=== PATIENT | female | born 1935 | race Caucasian/White ===

== ENCOUNTER 2017-04-25 18:19 | Inpatient (IN) | payer MEDICARE, MEDICAID ==
[2017-04-25] MEDS ORDERED: Sodium Chloride 0.9% 10 ML Syringe FLUSH PRN (18:55)
[2017-04-25] MEDS ORDERED: Albuterol/Ipratropium 3.0-0.5 MG/3 ML Neb Soln NEB ONE (18:57)
[2017-04-25] MEDS ORDERED: cefTRIAXone 2 GM in Sodium Chloride 0.9% 100 ML IV ONE (18:57)
--- NOTE | 2017-04-25 19:04 | EDM.PDOC ---
ED HPI GENERAL MEDICAL PROBLEM - General Chief Complaint: Respiratory Problem Stated Complaint: COUGHING AND MAYBE FLU Time Seen by Provider: 04/25/17 18:47 Source of Information: Reports: Patient, Family History Limitations: Reports: No Limitations - History of Present Illness INITIAL COMMENTS - FREE TEXT/NARRATIVE: The patient presents with a cough, fever and chills. This all started last Sunday. She also has some shortness of breath. She has chest pain when she coughs. She is diaphoretic at times. She has a hoarse voice. She has no appetite. She has no abdominal pain, nausea or vomiting. She does not smoke and she has no lung problems such as asthma or COPD. Onset: Gradual Duration: Day(s): (5) Location: Reports: Chest Quality: Reports: Ache Severity: Mild Improves with: Reports: None Worsens with: Reports: Other (coughing) Associated Symptoms: Reports: Chest Pain, Cough, cough w sputum, Fever/Chills, Shortness of Breath. Denies: Headaches, Nausea/Vomiting Lower Back Pain Score (Numeric/FACES): 8 - Related Data Allergies Allergy/AdvReac Type Severity Reaction Status Date / Time No Known Allergies Allergy Verified 04/25/17 18:34 Home Meds: Home Meds Multivitamin [Multi Vitamin Daily] 1 tab PO DAILY 02/28/14 [History] Omeprazole 1 cap PO DAILY 02/28/14 [History] Simvastatin [Zocor] 1 tab PO BEDTIME 02/28/14 [History] Ascorbic Acid [Vitamin C] 1 tab PO DAILY 04/06/14 [History] Calcium Citrate/Vitamin D3 [Sm Calcium Citrate-Vit D Cplt] 1 tab PO TID [History] Cholecalciferol (Vitamin D3) [Vitamin D3] 1 tab PO DAILY 04/06/14 [History] Denosumab [Prolia] 1 dose SQ ASDIRECTED 04/06/14 [History] Glucosamine Sulfate 1 tab PO DAILY 04/06/14 [History] Ibuprofen [Advil] 3 tab PO Q8H PRN 04/06/14 [History] Magnesium Oxide 1 tab PO DAILY 04/06/14 [History] [place]-3 Fatty Acids [Homestead-3] 1 cap PO DAILY 04/06/14 [History] Ondansetron [Zofran ODT] 2 tab PO Q8H PRN 04/06/14 [History] Ubidecarenone [Co Q-10] 1 cap PO DAILY 04/06/14 [History] Vitamin B Complex 1 cap PO DAILY 04/06/14 [History] cycloSPORINE [Restasis] 1 dose EYEBOTH ASDIRECTED PRN 04/06/14 [History] Past Medical History 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 Gastrointestinal History: Reports: Irritable Bowel Syndrome Musculoskeletal History: Reports: Osteoarthritis Neurological History: Reports: Other (See Below) 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 Social & Family History - Tobacco Use Smoking Status *Q: Former Smoker Used Tobacco, but Quit: No Month Tobacco Last Used: 1974 Second Hand Smoke Exposure: No - Alcohol Use Days Per Week of Alcohol Use: 0 Number of Drinks Per Day: 0 Total Drinks Per Week: 0 - Recreational Drug Use Recreational Drug Use: No Drug Use in Last 12 Months: No ED ROS GENERAL - Review of Systems Review Of Systems: See Below Constitutional: Reports: Fever, Chills, Malaise, Weakness, Fatigue HEENT: Reports: Other (Hoarse voice) Respiratory: Reports: Shortness of Breath, Cough, Sputum Cardiovascular: Reports: Chest Pain Endocrine: Reports: No Symptoms GI/Abdominal: Reports: Anorexia. Denies: Abdominal Pain, Diarrhea, Nausea, Vomiting : Reports: No Symptoms Musculoskeletal: Reports: No Symptoms Skin: Reports: No Symptoms Neurological: Reports: No Symptoms ED EXAM, GENERAL - Physical Exam Exam: See Below Exam Limited By: No Limitations General Appearance: Alert, WD/WN, No Apparent Distress Ears: Normal External Exam Nose: Normal Inspection Throat/Mouth: Normal Inspection Head: Atraumatic, Normocephalic Neck: Normal Inspection Respiratory/Chest: No Respiratory Distress, Rhonchi Cardiovascular: Regular Rate, Rhythm, No Edema, No Murmur GI/Abdominal: Soft, Non-Tender, No Organomegaly, No Mass Back Exam: Normal Inspection Extremities: Normal Inspection Course - Vital Signs Last Recorded V/S: Last Vital Signs Temp 97.8 F 04/25/17 18:34 Pulse 103 H 04/25/17 18:34 Resp 24 H 04/25/17 18:34 BP 98/62 04/25/17 18:34 Pulse Ox 93 L 04/25/17 19:08 - Orders/Labs/Meds Orders: Active Orders 24 hr Category Date Time Status Cardiac Monitoring [RC] . DIRECTED Care 04/25/17 18:55 Active Peripheral IV Care [RC] . DIRECTED Care 04/25/17 18:56 Active RT Aerosol Therapy [RC] ASDIRECTED Care 04/25/17 18:57 Active Chest 1V Frontal [CR] Stat Exams 04/25/17 18:56 Taken CULTURE BLOOD [BC] Stat Lab 04/25/17 19:25 Received CULTURE BLOOD [BC] Stat Lab 04/25/17 19:35 Received Sodium Chloride 0.9% [Normal Saline] 1,000 ml Med 04/25/17 19:00 Active IV ASDIRECTED Sodium Chloride 0.9% [Saline Flush] Med 04/25/17 18:55 Active 10 ml FLUSH ASDIRECTED PRN Blood Culture x2 Reflex Set [OM.PC] Stat Oth 04/25/17 18:56 Ordered Peripheral IV Insertion Adult [OM.PC] Stat Oth 04/25/17 18:55 Ordered Medication Orders Sodium Chloride (Normal Saline) 1,000 mls @ 125 mls/hr IV ASDIRECTED ANDREA Last Admin: 04/25/17 19:36 Dose: 125 mls/hr Sodium Chloride (Saline Flush) 10 ml FLUSH ASDIRECTED PRN PRN Reason: Keep Vein Open Last Admin: 04/25/17 19:38 Dose: 10 ml Labs: Laboratory Tests 04/25/17 04/25/17 04/25/17 Range/Units 18:40 18:40 19:25 WBC 7.39 (3.98-10.04) K/mm3 RBC 4.70 (3.98-5.22) M/mm3 Hgb 14.8 (11.2-15.7) gm/L Hct 42.7 (34.1-44.9) % MCV 90.9 (79.4-94.8) fl MCH 31.5 (25.6-32.2) pg MCHC 34.7 (32.2-35.5) g/dl RDW Std Deviation 42.6 (36.4-46.3) fL Plt Count 193 (182-369) K/mm3 MPV 10.6 (9.4-12.3) fl Neut % (Auto) 48.5 (34.0-71.1) % Lymph % (Auto) 37.2 (19.3-51.7) % Gulf % (Auto) 13.3 H (4.7-12.5) % Eos % (Auto) 0.4 L (0.7-5.8) Baso % (Auto) 0.3 (0.1-1.2) % Neut # (Auto) 3.59 (1.56-6.13) K/mm3 Lymph # (Auto) 2.75 (1.18-3.74) K/mm3 Gulf # (Auto) 0.98 H (0.24-0.36) K/mm3 Eos # (Auto) 0.03 L (0.04-0.36) K/mm3 Baso # (Auto) 0.02 (0.01-0.08) K/mm3 Sodium 137 (136-145) mEq/L Potassium 3.3 L (3.5-5.1) mEq/L Chloride 100 (98-107) mEq/L Carbon Dioxide 25 (21-32) mEq/L Anion Gap 15.3 H (5-15) BUN 20 H (7-18) mg/dL Creatinine 1.0 (0.55-1.02) mg/dL Est Cr Clr Drug Dosing 34.30 mL/min Estimated GFR (MDRD) 53 (>60) mL/min BUN/Creatinine Ratio 20.0 H (14-18) Glucose 118 H (83-115) mg/dL Lactic Acid 1.8 (0.4-2.0) mmol/L Calcium 9.9 (8.5-10.1) mg/dL Total Bilirubin 1.1 H (0.2-1.0) mg/dL AST 42 H (15-37) U/L ALT 38 (14-59) U/L Alkaline Phosphatase 56 (46-116) U/L C-Reactive Protein 5.6 H* (<1.0) mg/dL Total Protein 6.7 (6.4-8.2) g/dl Albumin 3.0 L (3.4-5.0) g/dl Globulin 3.7 gm/dL Albumin/Globulin Ratio 0.8 L (1-2) Meds: Medications Generic Name Dose Route Start Last Admin Trade Name Freq PRN Reason Stop Dose Admin Sodium Chloride 1,000 mls @ 125 mls/hr 04/25/17 19:00 04/25/17 19:36 Normal Saline IV 125 mls/hr ASDIRECTED ANDREA Administration Sodium Chloride 10 ml 04/25/17 18:55 04/25/17 19:38 Saline Flush FLUSH 10 ml ASDIRECTED PRN Administration Keep Vein Open Discontinued Medications Generic Name Dose Route Start Last Admin Trade Name Freq PRN Reason Stop Dose Admin Albuterol/Ipratropium 3 ml 04/25/17 18:57 04/25/17 19:08 Duoneb 3.0-0.5 Mg/3 Ml NEB 04/25/17 18:58 3 ml ONETIME ONE Administration Ceftriaxone Sodium 2 gm/ 100 mls @ 100 mls/hr 04/25/17 18:57 04/25/17 19:37 Sodium Chloride IV 04/25/17 19:56 100 mls/hr ONETIME ONE Administration Oseltamivir Phosphate 75 mg 04/25/17 20:14 Tamiflu PO 04/25/17 20:15 ONETIME ONE - Re-Assessments/Exams Free Text/Narrative Re-Assessment/Exam: 04/25/17 19:03 I ordered an IV NS at 125mL/hr, labs, CXR, duoneb, blood cultures and rocephin 2 grams IV. 04/25/17 20:32 Her CXR shows a small infiltrate in the right middle lobe. Her WBC is normal. Her K was a little low at 3.3. Her anion gap is slightly elevated at 15.3. Her creatinine is normal at 1. Her AST was slightly elevated at 42. Her CRP was elevated at 5.6. Her lactic acid is normal. She is positive for influenza A. I ordered some tamiflu. I feel she needs to be admitted. I called Dr Wren and she agreed to the admission. Departure - Departure Time of Disposition: 20:35 Disposition: Admitted As Inpatient 66 Condition: Fair Clinical Impression: Influenza B Pneumonia Qualifiers: Pneumonia type: due to unspecified organism Laterality: right Lung location: middle lobe of lung Qualified Code(s): J18.1 - Lobar pneumonia, unspecified organism - Discharge Information Referrals: Caridad Villa, [employer] [Primary Care Provider] - Forms: ED Department Discharge - My Orders Last 24 Hours: My Active Orders 04/25/17 18:55 Cardiac Monitoring [RC] . DIRECTED Sodium Chloride 0.9% [Saline Flush] 10 ml FLUSH ASDIRECTED PRN Peripheral IV Insertion Adult [OM.PC] Stat 04/25/17 18:56 Peripheral IV Care [RC] . DIRECTED Chest 1V Frontal [CR] Stat Blood Culture x2 Reflex Set [OM.PC] Stat 04/25/17 18:57 RT Aerosol Therapy [RC] ASDIRECTED 04/25/17 19:00 Sodium Chloride 0.9% [Normal Saline] 1,000 ml IV ASDIRECTED 04/25/17 19:25 CULTURE BLOOD [BC] Stat 04/25/17 19:35 CULTURE BLOOD [BC] Stat - Assessment/Plan Last 24 Hours: My Active Orders 04/25/17 18:55 Cardiac Monitoring [RC] . DIRECTED Sodium Chloride 0.9% [Saline Flush] 10 ml FLUSH ASDIRECTED PRN Peripheral IV Insertion Adult [OM.PC] Stat 04/25/17 18:56 Peripheral IV Care [RC] . DIRECTED Chest 1V Frontal [CR] Stat Blood Culture x2 Reflex Set [OM.PC] Stat 04/25/17 18:57 RT Aerosol Therapy [RC] ASDIRECTED 04/25/17 19:00 Sodium Chloride 0.9% [Normal Saline] 1,000 ml IV ASDIRECTED 04/25/17 19:25 CULTURE BLOOD [BC] Stat 04/25/17 19:35 CULTURE BLOOD [BC] Stat
[2017-04-25] MEDS: Sodium Chloride 0.9% 1,000 ML IV SCH (19:36)
[2017-04-25] MEDS ORDERED: Oseltamivir 75 MG Cap PO ONE (20:14)
[2017-04-25] MEDS ORDERED: CYCLOSPORINE 0.05% EYEBOTH PRN (21:42)
[2017-04-25] MEDS ORDERED: OPTH EMULSION EYEBOTH PRN (21:42)
[2017-04-25] MEDS ORDERED: Levofloxacin/Dextrose 5%-Water 750 MG in Premix Bag 1 BAG IV SCH ×2 (21:45→22:00)
[2017-04-25] MEDS ORDERED: Albuterol/Ipratropium 3.0-0.5 MG/3 ML Neb Soln NEB PRN (21:52)
[2017-04-25] MEDS ORDERED: Temazepam 7.5 MG Cap PO PRN (21:56)
--- NOTE | 2017-04-25 21:56 | PCM.HP ---
H&P History of Present Illness - General Date of Service: 04/25/17 Admit Problem/Dx: Admission Diagnosis/Problem Admission Diagnosis/Problem Influenza with pneumonia Source of Information: Patient, Provider History Limitations: Reports: No Limitations - History of Present Illness Initial Comments - Free Text/Narative: 82 year old female with malaise, generalized weakness presents to the ED and was diagnosed with Influenza B. She had chosen not to get the Flu vaccine. She has had a dry cough with a hoarse voice. Denies fever or chills but has felt diaphoretic. She denies a headache, confusion but has had a diminished appetite. Symptom Onset Date: 04/20/17 Duration of Symptoms: Reports: Day(s):, Getting Worse Location: Reports: Chest, Generalized Severity: Moderate Improves with: Reports: Medication Worsens with: Reports: None Context: Reports: Sick Contact Associated Symptoms: Reports: Cough, Loss of Appetite, Malaise, Nausea/Vomiting , Shortness of Breath, Weakness Lower Back Pain Score (Numeric/FACES): 8 - Related Data Allergies/Adverse Reactions: Allergies Allergy/AdvReac Type Severity Reaction Status Date / Time No Known Allergies Allergy Verified 04/25/17 18:34 Home Medications: Home Meds Multivitamin [Multi Vitamin Daily] 1 tab PO DAILY 02/28/14 [History] Omeprazole 1 cap PO DAILY 02/28/14 [History] Simvastatin [Zocor] 1 tab PO BEDTIME 02/28/14 [History] Ascorbic Acid [Vitamin C] 1 tab PO DAILY 04/06/14 [History] Calcium Citrate/Vitamin D3 [Sm Calcium Citrate-Vit D Cplt] 1 tab PO TID [History] Cholecalciferol (Vitamin D3) [Vitamin D3] 1 tab PO DAILY 04/06/14 [History] Denosumab [Prolia] 1 dose SQ ASDIRECTED 04/06/14 [History] Glucosamine Sulfate 1 tab PO DAILY 04/06/14 [History] Ibuprofen [Advil] 3 tab PO Q8H PRN 04/06/14 [History] Rio-3 Fatty Acids [Rio-3] 1 cap PO DAILY 04/06/14 [History] Ubidecarenone [Co Q-10] 1 cap PO DAILY 04/06/14 [History] cycloSPORINE [Restasis] 1 dose EYEBOTH ASDIRECTED PRN 04/06/14 [History] L.acidoph,Paracasei, B.lactis [Probiotic] 1 each PO DAILY 04/26/17 [History] Polyethylene Glycol 3350 [MiraLAX] 17 gm PO DAILY 04/26/17 [History] Past Medical History 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 Gastrointestinal History: Reports: Irritable Bowel Syndrome Musculoskeletal History: Reports: Osteoarthritis Neurological History: Reports: Other (See Below) 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 Social & Family History - Tobacco Use Smoking Status *Q: Former Smoker Used Tobacco, but Quit: No Month Tobacco Last Used: 1974 Second Hand Smoke Exposure: No - Alcohol Use Days Per Week of Alcohol Use: 0 Number of Drinks Per Day: 0 Total Drinks Per Week: 0 - Recreational Drug Use Recreational Drug Use: No Drug Use in Last 12 Months: No H&P Review of Systems - Review of Systems: Review Of Systems: See Below General: Reports: No Symptoms, Malaise, Weakness, Fatigue HEENT: Reports: No Symptoms Pulmonary: Reports: Shortness of Breath, Pleuritic Chest Pain Cardiovascular: Reports: No Symptoms Gastrointestinal: Reports: No Symptoms Genitourinary: Reports: No Symptoms Musculoskeletal: Reports: No Symptoms Skin: Reports: No Symptoms Psychiatric: Reports: No Symptoms Neurological: Reports: No Symptoms Hematologic/Lymphatic: Reports: No Symptoms Immunologic: Reports: No Symptoms Exam - Exam Exam: See Below - Vital Signs Vital Signs: Last Vital Signs Temp 36.6 C 04/25/17 18:34 Pulse 103 H 04/25/17 18:34 Resp 24 H 04/25/17 18:34 BP 98/62 04/25/17 18:34 Pulse Ox 93 L 04/25/17 19:08 Weight: 58.967 kg - Exam Quality Assessment: Supplemental Oxygen, DVT Prophylaxis General: Alert, Oriented, Cooperative HEENT: Conjunctiva Clear, Nares Patent, Normal Nasal Septum, Pupils Equal, Pupils Reactive, PERRLA Neck: Trachea Midline Lungs: Normal Respiratory Effort, Decreased Breath Sounds, Rhonchi Cardiovascular: Regular Rate, Regular Rhythm GI/Abdominal Exam: Normal Bowel Sounds, Soft, Non-Tender, No Organomegaly, No Distention (Female) Exam: Deferred Rectal (Female) Exam: Deferred Back Exam: Normal Inspection Extremities: Normal Inspection, Non-Tender, Slow Capillary Refill Skin: Warm Neurological: Cranial Nerves Intact, Normal Speech Neuro Extensive - Mental Status: Alert, Oriented x3 Neuro Extensive - Motor, Sensory, Reflexes: CN II-XII Intact Psychiatric: Alert, Normal Affect, Normal Mood - Patient Data Result Diagrams: 04/26/17 06:17 04/26/17 06:17 *Q Meaningful Use (ADM) - VTE *Q VTE Criteria *Q: - Stroke *Q Stroke Criteria *Q: - AMI *Q AMI Criteria *Q: - Problem List (1) Influenza B SNOMED Code(s): 87713752 ICD Code: J10.1 - FLU DUE TO OTH IDENT INFLUENZA VIRUS W OTH RESP MANIFEST Status: Acute Current Visit: Yes Problem List Initiated/Reviewed/Updated: Yes Orders Last 24hrs: Active Orders 24 hr Category Date Time Status RT Aerosol Therapy [RC] ASDIRECTED Care 04/25/17 21:53 Active Consult to Occupational Therapy [OT Evaluation and Cons 04/25/17 21:52 Active Treatment] [CONS] Routine Consult to Physical Therapy [PT Evaluation and Cons 04/25/17 21:51 Active Treatment] [CONS] Routine Full Liquid Diet [DIET] Diet 04/26/17 Breakfast Active CXR [Chest 2V] [CR] Routine Exams 04/27/17 08:30 Ordered BMP [BASIC METABOLIC PANEL,BMP] [CHEM] DAILY Lab 04/26/17 05:00 Ordered BMP [BASIC METABOLIC PANEL,BMP] [CHEM] DAILY Lab 04/27/17 05:00 Ordered BMP [BASIC METABOLIC PANEL,BMP] [CHEM] DAILY Lab 04/28/17 05:00 Ordered BMP [BASIC METABOLIC PANEL,BMP] [CHEM] DAILY Lab 04/29/17 05:00 Ordered CBC WITH AUTO DIFF [HEME] DAILY Lab 04/26/17 05:00 Ordered CBC WITH AUTO DIFF [HEME] DAILY Lab 04/27/17 05:00 Ordered CBC WITH AUTO DIFF [HEME] DAILY Lab 04/28/17 05:00 Ordered CBC WITH AUTO DIFF [HEME] DAILY Lab 04/29/17 05:00 Ordered CRP [C-REACTIVE PROTEIN] [CHEM] DAILY Lab 04/26/17 05:00 Ordered CRP [C-REACTIVE PROTEIN] [CHEM] DAILY Lab 04/27/17 05:00 Ordered CRP [C-REACTIVE PROTEIN] [CHEM] DAILY Lab 04/28/17 05:00 Ordered CRP [C-REACTIVE PROTEIN] [CHEM] DAILY Lab 04/29/17 05:00 Ordered LACTIC ACID [CHEM] DAILY Lab 04/26/17 05:00 Ordered LACTIC ACID [CHEM] DAILY Lab 04/27/17 05:00 Ordered LACTIC ACID [CHEM] DAILY Lab 04/28/17 05:00 Ordered LACTIC ACID [CHEM] DAILY Lab 04/29/17 05:00 Ordered MAGNESIUM [CHEM] DAILY Lab 04/26/17 05:00 Ordered MAGNESIUM [CHEM] DAILY Lab 04/27/17 05:00 Ordered MAGNESIUM [CHEM] DAILY Lab 04/28/17 05:00 Ordered MAGNESIUM [CHEM] DAILY Lab 04/29/17 05:00 Ordered MYCOPLASMA PNEUMONIAE IGM AB [CHEM] Routine Lab 04/26/17 05:00 Ordered STREP PNEUMONIAE ANTIGEN [MREF] Routine Lab 04/25/17 21:46 Ordered Albuterol/Ipratropium [DuoNeb 3.0-0.5 MG/3 ML] Med 04/25/17 21:52 Ordered 3 ml NEB QID PRN Enoxaparin [Lovenox] Med 04/26/17 09:00 Ordered 30 mg SUBCUT DAILY Famotidine [Pepcid] Med 04/26/17 21:00 Ordered 20 mg PO BEDTIME Levofloxacin/Dextrose 5%-Water [Levaquin in D5W 750 MG/ Med 04/25/17 22:00 Active 150 ML] 750 mg Premix Bag 1 bag IV Q48H Oseltamivir [Tamiflu] Med 04/26/17 09:00 Ordered 75 mg PO DAILY Simvastatin [Zocor] Med 04/26/17 21:00 Ordered DOSE mg PO BEDTIME Ubidecarenone [Co Q-10] Med 04/26/17 09:00 Ordered 1 cap PO DAILY cycloSPORINE Med 04/25/17 21:42 Pending 1 dose EYEBOTH ASDIRECTED PRN Medication Orders Albuterol/Ipratropium (Duoneb 3.0-0.5 Mg/3 Ml) 3 ml NEB QID PRN PRN Reason: Shortness of Breath Enoxaparin Sodium (Lovenox) 30 mg SUBCUT DAILY ANDREA Famotidine (Pepcid) 20 mg PO BEDTIME ANDREA Sodium Chloride (Normal Saline) 1,000 mls @ 125 mls/hr IV ASDIRECTED ANDREA Last Admin: 04/25/17 19:36 Dose: 125 mls/hr Levofloxacin/Dextrose 750 mg/ (Premix) 150 mls @ 100 mls/hr IV Q48H ANDREA Non-Formulary Medication (Cyclosporine) 1 dose EYEBOTH ASDIRECTED PRN PRN Reason: Dry Eyes Non-Formulary Medication (Ubidecarenone [Co Q-10]) 1 cap PO DAILY ANDREA Oseltamivir Phosphate (Tamiflu) 75 mg PO DAILY ANDREA Simvastatin (Zocor) mg PO BEDTIME ANDREA Sodium Chloride (Saline Flush) 10 ml FLUSH ASDIRECTED PRN PRN Reason: Keep Vein Open Last Admin: 04/25/17 19:38 Dose: 10 ml Assessment/Plan Comment:: Impression: Influenza B, no prior 2017 vaccine exposure Dehydration Query Pneumonia Plan: IVF TamiFlu with dosage adjustment if needed. Query empiric ATB coverage PNA work up Droplet isolation DVT/GI prophylaxis Consult PT/OT/CM (re: HH if needed)
[2017-04-26] MEDS ORDERED: Acetaminophen 325 MG Tab PO PRN (02:32)
[2017-04-26] MEDS: Sodium Chloride 0.9% 1,000 ML IV SCH ×2 (07:05→18:35)
--- NOTE | 2017-04-26 07:32 | CR ---
Chest: Portable view of the chest was obtained. Comparison: No prior chest x-ray. Heart size is normal. Tortuous thoracic aorta is seen. Lungs are clear. Scoliosis is noted within the spine. Previous vertebroplasty is seen at the thoracolumbar junction. Impression: 1. Incidental findings. Nothing acute is seen on portable chest x-ray. Diagnostic code #2
[2017-04-26] MEDS ORDERED: Enoxaparin 30 MG/0.3 ML Syringe SUBCUT SCH (09:00)
[2017-04-26] MEDS: UBIDECARENONE PO SCH (09:18)
[2017-04-26] MEDS: Oseltamivir 30 MG Cap PO SCH ×2 (09:18→20:58)
[2017-04-26] MEDS: Enoxaparin 40 MG/0.4 ML Syringe SUBCUT SCH (09:18)
[2017-04-26] MEDS ORDERED: Sodium Chloride 0.9% 1,000 ML IV SCH (10:30)
[2017-04-26] MEDS ORDERED: Magnesium Sulfate/Water 2 GM in Premix Bag 1 BAG IV ONE (16:11)
--- NOTE | 2017-04-26 16:21 | PCM.PN ---
- General Info Date of Service: 04/26/17 Functional Status: Reports: Pain Controlled, Tolerating Diet, Ambulating, Urinating - Review of Systems General: Reports: No Symptoms HEENT: Reports: No Symptoms Pulmonary: Reports: No Symptoms Cardiovascular: Reports: No Symptoms Gastrointestinal: Reports: No Symptoms Genitourinary: Reports: No Symptoms Musculoskeletal: Reports: No Symptoms Skin: Reports: No Symptoms Neurological: Reports: No Symptoms Psychiatric: Reports: No Symptoms - Patient Data Vitals - Most Recent: Last Vital Signs Temp 36.7 C 04/26/17 14:17 Pulse 74 04/26/17 14:17 Resp 17 04/26/17 14:17 BP 114/92 H 04/26/17 14:17 Pulse Ox 93 L 04/26/17 15:01 Weight - Most Recent: 58.649 kg I&O - Last 24 Hours: Intake & Output 04/26/17 04/26/17 04/26/17 06:59 14:59 22:59 Intake Total 450 Balance 450 Med Orders - Current: Current Medications Acetaminophen (Tylenol) 650 mg PO Q4H PRN PRN Reason: Fever Last Admin: 04/26/17 02:37 Dose: 650 mg Albuterol/Ipratropium (Duoneb 3.0-0.5 Mg/3 Ml) 3 ml NEB QIDRT PRN PRN Reason: Shortness of Breath Last Admin: 04/26/17 15:01 Dose: 3 ml Enoxaparin Sodium (Lovenox) 40 mg SUBCUT DAILY [facility] Last Admin: 04/26/17 09:18 Dose: 40 mg Famotidine (Pepcid) 20 mg PO BEDTIME [facility] Levofloxacin/Dextrose 750 mg/ (Premix) 150 mls @ 100 mls/hr IV Q48H [facility] Last Admin: 04/25/17 23:43 Dose: 100 mls/hr Sodium Chloride (Normal Saline) 1,000 mls @ 75 mls/hr IV ASDIRECTED [facility] Magnesium Sulfate 2 gm/ Premix 50 mls @ 25 mls/hr IV ONETIME ONE Stop: 04/26/17 18:10 Non-Formulary Medication (L.Acidoph,Paracasei, B.Lactis [Probiotic]) 1 each PO DAILY [facility] Oseltamivir Phosphate (Tamiflu) 30 mg PO BID ANDREA Stop: 04/29/17 22:00 Last Admin: 04/26/17 09:18 Dose: 30 mg Cyclosporine 0.05% (Opth Emulsion) 0 each EYEBOTH ASDIRECTED PRN PRN Reason: Dry Eyes Ubidecarenone [Co Q- (10] 1 Cap) 0 each PO DAILY [facility] Last Admin: 04/26/17 09:18 Dose: Not Given Polyethylene Glycol (Miralax) 17 gm PO DAILY [facility] Potassium Chloride (Klor-Con M20) 40 meq PO BID [facility] Stop: 04/29/17 16:16 Simvastatin (Zocor) 20 mg PO BEDTIME [facility] Sodium Chloride (Saline Flush) 10 ml FLUSH ASDIRECTED PRN PRN Reason: Keep Vein Open Last Admin: 04/25/17 19:38 Dose: 10 ml Temazepam (Restoril) 7.5 mg PO BEDTIME PRN PRN Reason: Insomnia Discontinued Medications Albuterol/Ipratropium (Duoneb 3.0-0.5 Mg/3 Ml) 3 ml NEB ONETIME ONE Stop: 04/25/17 18:58 Last Admin: 04/25/17 19:08 Dose: 3 ml Ceftriaxone Sodium 2 gm/ (Sodium Chloride) 100 mls @ 100 mls/hr IV ONETIME ONE Stop: 04/25/17 19:56 Last Admin: 04/25/17 19:37 Dose: 100 mls/hr Sodium Chloride (Normal Saline) 1,000 mls @ 125 mls/hr IV ASDIRECTED ANDREA Last Admin: 04/26/17 07:05 Dose: 125 mls/hr Oseltamivir Phosphate (Tamiflu) 75 mg PO ONETIME ONE Stop: 04/25/17 20:15 Last Admin: 04/25/17 20:46 Dose: 75 mg Simvastatin (Zocor) 20 mg PO BEDTIME ANDREA - Exam Quality Assessment: Supplemental Oxygen, DVT Prophylaxis General: Alert, Oriented, No Acute Distress HEENT: Pupils Equal, Pupils Reactive, EOMI Neck: Trachea Midline, No JVD Lungs: Normal Respiratory Effort, Decreased Breath Sounds Cardiovascular: Regular Rate, Regular Rhythm GI/Abdominal Exam: Normal Bowel Sounds, Soft, Non-Tender, No Organomegaly, No Distention (Female) Exam: Deferred Back Exam: Normal Inspection Extremities: Normal Inspection Skin: Warm Neurological: No New Focal Deficit Psy/Mental Status: Alert, Normal Affect, Normal Mood - Problem List Review Problem List Initiated/Reviewed/Updated: Yes - My Orders Last 24 Hours: My Active Orders 04/26/17 16:11 Magnesium Sulfate/Water [Magnesium Sulfate 2 GM in Water 50 ML] 2 gm Premix Bag 1 bag IV ONETIME 04/26/17 16:15 Potassium Chloride [Klor-Con M20] 40 meq PO BID 04/27/17 09:00 L.acidoph,Paracasei, B.lactis [Probiotic] 1 each PO DAILY Polyethylene Glycol 3350 [MiraLAX] 17 gm PO DAILY - Plan Plan:: Impression: Influenza B, no prior 2017 vaccine exposure Dehydration Query Pneumonia Plan: IVF TamiFlu with dosage adjustment if needed. Query empiric ATB coverage Infectious work up Droplet isolation DVT/GI prophylaxis Consult PT/OT/CM (re: HH if needed)
[2017-04-26] MEDS: Potassium Chloride 20 MEQ Tab.ER PO SCH ×2 (16:32→20:57)
[2017-04-26] MEDS: Famotidine 20 MG Tab PO SCH (20:58)
[2017-04-26] MEDS: Simvastatin 20 MG Tab PO SCH (20:58)
[2017-04-26] MEDS ORDERED: Simvastatin 20 MG Tab PO SCH (21:00)
--- NOTE | 2017-04-27 09:28 | CR ---
Chest: Two views of the chest were obtained. Comparison: Prior chest x-ray of 04/25/17. Moderately large hiatal hernia is seen. Heart size is normal. Tortuous thoracic aorta is seen. Several areas of increased density are noted within the mid to right upper lung which is most likely due to callus from healing rib fractures. The finding is more noticeable on current exam than on previous most likely from differences in patient rotation. Lungs otherwise are clear. Previous vertebroplasty is noted at the thoracolumbar junction. Minimal scoliosis is noted. Impression: 1. Incidental findings as noted above. Nothing acute is appreciated. Diagnostic code #2
[2017-04-27] MEDS: Oseltamivir 30 MG Cap PO SCH ×2 (09:44→21:57)
[2017-04-27] MEDS: Saccharomyces Boulardii (Probiotic) 250 MG Cap PO SCH (09:44)
[2017-04-27] MEDS: Potassium Chloride 20 MEQ Tab.ER PO SCH ×2 (09:44→21:56)
[2017-04-27] MEDS: Polyethylene Glycol 3350 Powder 17 GM Packet PO SCH (09:45)
[2017-04-27] MEDS: Enoxaparin 40 MG/0.4 ML Syringe SUBCUT SCH (09:45)
[2017-04-27] MEDS: UBIDECARENONE PO SCH (09:49)
[2017-04-27] MEDS: Sodium Chloride 0.9% 1,000 ML IV SCH (14:29)
[2017-04-27] MEDS: Famotidine 20 MG Tab PO SCH (21:56)
[2017-04-27] MEDS: Simvastatin 20 MG Tab PO SCH (21:57)
[2017-04-28] MEDS: Enoxaparin 40 MG/0.4 ML Syringe SUBCUT SCH (09:32)
[2017-04-28] MEDS: Potassium Chloride 20 MEQ Tab.ER PO SCH ×2 (09:32→20:14)
[2017-04-28] MEDS: Saccharomyces Boulardii (Probiotic) 250 MG Cap PO SCH (09:32)
[2017-04-28] MEDS: Polyethylene Glycol 3350 Powder 17 GM Packet PO SCH (09:32)
[2017-04-28] MEDS: Oseltamivir 30 MG Cap PO SCH ×2 (09:32→20:15)
--- NOTE | 2017-04-28 17:25 | PCM.PN ---
- General Info Date of Service: 04/28/17 Functional Status: Reports: Tolerating Diet, Ambulating, Urinating - Review of Systems General: Reports: No Symptoms HEENT: Reports: No Symptoms Pulmonary: Reports: No Symptoms Cardiovascular: Reports: No Symptoms Gastrointestinal: Reports: No Symptoms Genitourinary: Reports: No Symptoms Musculoskeletal: Reports: No Symptoms Skin: Reports: No Symptoms Neurological: Reports: No Symptoms Psychiatric: Reports: No Symptoms - Patient Data Vitals - Most Recent: Last Vital Signs Temp 36.8 C 04/28/17 14:33 Pulse 69 04/28/17 14:33 Resp 24 H 04/28/17 14:33 BP 127/88 04/28/17 14:33 Pulse Ox 95 04/28/17 14:33 Weight - Most Recent: 58.604 kg I&O - Last 24 Hours: Intake & Output 04/28/17 04/28/17 04/28/17 06:59 14:59 22:59 Intake Total 931 441 780 Output Total 2250 400 Balance -1319 441 380 Lab Results Last 24 Hours: Laboratory Results - last 24 hr 04/28/17 04/28/17 04/28/17 Range/Units 06:35 06:35 06:35 WBC 6.60 (3.98-10.04) K/mm3 RBC 4.12 (3.98-5.22) M/mm3 Hgb 13.0 (11.2-15.7) gm/L Hct 38.2 (34.1-44.9) % MCV 92.7 (79.4-94.8) fl MCH 31.6 (25.6-32.2) pg MCHC 34.0 (32.2-35.5) g/dl RDW Std Deviation 42.5 (36.4-46.3) fL Plt Count 210 (182-369) K/mm3 MPV 10.3 (9.4-12.3) fl Neut % (Auto) 36.3 (34.0-71.1) % Lymph % (Auto) 47.9 (19.3-51.7) % [place] % (Auto) 10.5 (4.7-12.5) % Eos % (Auto) 3.0 (0.7-5.8) Baso % (Auto) 0.6 (0.1-1.2) % Neut # (Auto) 2.40 (1.56-6.13) K/mm3 Lymph # (Auto) 3.16 (1.18-3.74) K/mm3 [place] # (Auto) 0.69 H (0.24-0.36) K/mm3 Eos # (Auto) 0.20 (0.04-0.36) K/mm3 Baso # (Auto) 0.04 (0.01-0.08) K/mm3 Manual Slide Review Normal smear Sodium 142 (136-145) mEq/L Potassium 4.1 (3.5-5.1) mEq/L Chloride 109 H (98-107) mEq/L Carbon Dioxide 24 (21-32) mEq/L Anion Gap 13.1 (5-15) BUN 9 (7-18) mg/dL Creatinine 0.6 (0.55-1.02) mg/dL Est Cr Clr Drug Dosing 57.17 mL/min Estimated GFR (MDRD) > 60 (>60) mL/min BUN/Creatinine Ratio 15.0 (14-18) Glucose 91 (83-115) mg/dL Lactic Acid 0.9 (0.4-2.0) mmol/L Calcium 9.1 (8.5-10.1) mg/dL Magnesium 1.9 (1.8-2.4) mg/dl C-Reactive Protein 1.8 H* (<1.0) mg/dL [place] Results Last 24 Hours: Microbiology 04/27/17 05:30 Streptococcus pneumoniae Antigen (M - Final Urine Med Orders - Current: Current Medications Acetaminophen (Tylenol) 650 mg PO Q4H PRN PRN Reason: Fever Last Admin: 04/26/17 02:37 Dose: 650 mg Albuterol/Ipratropium (Duoneb 3.0-0.5 Mg/3 Ml) 3 ml NEB QIDRT PRN PRN Reason: Shortness of Breath Last Admin: 04/26/17 15:01 Dose: 3 ml Enoxaparin Sodium (Lovenox) 40 mg SUBCUT DAILY [facility] Last Admin: 04/28/17 09:32 Dose: 40 mg Famotidine (Pepcid) 20 mg PO BEDTIME [facility] Last Admin: 04/27/17 21:56 Dose: 20 mg Oseltamivir Phosphate (Tamiflu) 30 mg PO BID [facility] Stop: 04/29/17 22:00 Last Admin: 04/28/17 09:32 Dose: 30 mg Cyclosporine 0.05% (Opth Emulsion) 0 each EYEBOTH ASDIRECTED PRN PRN Reason: Dry Eyes Polyethylene Glycol (Miralax) 17 gm PO DAILY [facility] Last Admin: 04/28/17 09:32 Dose: 17 gm Potassium Chloride (Klor-Con M20) 40 meq PO BID [facility] Stop: 04/29/17 16:16 Last Admin: 04/28/17 09:32 Dose: 40 meq Saccharomyces Boulardii (Florastor) 250 mg PO DAILY [facility] Last Admin: 04/28/17 09:32 Dose: 250 mg Simvastatin (Zocor) 20 mg PO BEDTIME [facility] Last Admin: 04/27/17 21:57 Dose: 20 mg Sodium Chloride (Saline Flush) 10 ml FLUSH ASDIRECTED PRN PRN Reason: Keep Vein Open Last Admin: 04/25/17 19:38 Dose: 10 ml Temazepam (Restoril) 7.5 mg PO BEDTIME PRN PRN Reason: Insomnia Discontinued Medications Albuterol/Ipratropium (Duoneb 3.0-0.5 Mg/3 Ml) 3 ml NEB ONETIME ONE Stop: 04/25/17 18:58 Last Admin: 04/25/17 19:08 Dose: 3 ml Ceftriaxone Sodium 2 gm/ (Sodium Chloride) 100 mls @ 100 mls/hr IV ONETIME ONE Stop: 04/25/17 19:56 Last Admin: 04/25/17 19:37 Dose: 100 mls/hr Sodium Chloride (Normal Saline) 1,000 mls @ 125 mls/hr IV ASDIRECTED [facility] Last Admin: 04/26/17 07:05 Dose: 125 mls/hr Levofloxacin/Dextrose 750 mg/ (Premix) 150 mls @ 100 mls/hr IV Q48H [facility] Last Admin: 04/25/17 23:43 Dose: 100 mls/hr Sodium Chloride (Normal Saline) 1,000 mls @ 75 mls/hr IV ASDIRECTED [facility] Magnesium Sulfate 2 gm/ Premix 50 mls @ 25 mls/hr IV ONETIME ONE Stop: 04/26/17 18:10 Last Admin: 04/26/17 16:34 Dose: 25 mls/hr Sodium Chloride (Normal Saline) 1,000 mls @ 50 mls/hr IV ASDIRECTED [facility] Last Admin: 04/27/17 14:29 Dose: 50 mls/hr Oseltamivir Phosphate (Tamiflu) 75 mg PO ONETIME ONE Stop: 04/25/17 20:15 Last Admin: 04/25/17 20:46 Dose: 75 mg Ubidecarenone [Co Q- (10] 1 Cap) 0 each PO DAILY [facility] Last Admin: 04/27/17 09:49 Dose: Not Given Simvastatin (Zocor) 20 mg PO BEDTIME [facility] - Exam Quality Assessment: DVT Prophylaxis General: Alert, Oriented, Cooperative HEENT: Pupils Equal, Pupils Reactive, EOMI Neck: Supple, Trachea Midline Lungs: Normal Respiratory Effort Cardiovascular: Regular Rate, Regular Rhythm GI/Abdominal Exam: Normal Bowel Sounds, Soft, Non-Tender, No Organomegaly, No Distention (Female) Exam: Deferred Back Exam: Normal Inspection Extremities: Normal Inspection, Non-Tender, Normal Capillary Refill Skin: Warm Neurological: No New Focal Deficit Psy/Mental Status: Alert, Normal Affect, Normal Mood - Problem List Review Problem List Initiated/Reviewed/Updated: Yes - My Orders Last 24 Hours: My Active Orders 04/28/17 10:38 Ambulate [RC] QID - Plan Plan:: Impression: Influenza B, no prior 2017 vaccine exposure Dehydration Query Pneumonia Plan: IVF TamiFlu; DC after final dose 04/29/17 Query empiric ATB coverage Infectious work up Droplet isolation DVT/GI prophylaxis Consult PT/OT/CM (re: HH if needed)
[2017-04-28] MEDS: Simvastatin 20 MG Tab PO SCH (20:15)
[2017-04-28] MEDS: Famotidine 20 MG Tab PO SCH (20:15)
[2017-04-29 07:53] VITALS: BP 143/71
[2017-04-29] MEDS: Potassium Chloride 20 MEQ Tab.ER PO SCH (09:11)
[2017-04-29] MEDS: Saccharomyces Boulardii (Probiotic) 250 MG Cap PO SCH (09:12)
[2017-04-29] MEDS: Oseltamivir 30 MG Cap PO SCH (09:12)
[2017-04-29] MEDS: Enoxaparin 40 MG/0.4 ML Syringe SUBCUT SCH (09:12)
[2017-04-29] MEDS: Polyethylene Glycol 3350 Powder 17 GM Packet PO SCH (09:13)
--- NOTE | 2017-04-29 10:28 | PCM.DCSUM1 ---
Discharge Summary - Hospital Course Free Text/Narrative:: 82 year old female with malaise, generalized weakness presents to the ED and was diagnosed with Influenza B. She had chosen not to get the Flu vaccine. She has had a dry cough with a hoarse voice. Denies fever or chills but has felt diaphoretic. She denies a headache, confusion but has had a diminished appetite. - Discharge Data Discharge Date: 04/29/17 Discharge Disposition: Home, Self-Care 01 Condition: Good - Patient Instructions Diet: Usual Diet as Tolerated Activity: As Tolerated Driving: May Drive Today Showering/Bathing: May Shower Notify Provider of: Fever, Nausea and/or Vomiting - Discharge Plan Home Medications: Home Meds Multivitamin [Multi-Vitamin Daily] 1 tab PO DAILY 02/28/14 [History] Omeprazole 1 cap PO DAILY 02/28/14 [History] Simvastatin [Zocor] 1 tab PO BEDTIME 02/28/14 [History] Ascorbic Acid [Vitamin C] 1 tab PO DAILY 04/06/14 [History] Calcium Citrate/Vitamin D3 [Sm Calcium Citrate-Vit D Cplt] 1 tab PO TID [History] Cholecalciferol (Vitamin D3) [Vitamin D3] 1 tab PO DAILY 04/06/14 [History] Denosumab [Prolia] 1 dose SQ ASDIRECTED 04/06/14 [History] Glucosamine Sulfate 1 tab PO DAILY 04/06/14 [History] Ibuprofen [Advil] 3 tab PO Q8H PRN 04/06/14 [History] [place]-3 Fatty Acids [[place]-3] 1 cap PO DAILY 04/06/14 [History] Ubidecarenone [Co Q-10] 1 cap PO DAILY 04/06/14 [History] cycloSPORINE [Restasis] 1 dose EYEBOTH ASDIRECTED PRN 04/06/14 [History] L.acidoph,Paracasei, B.lactis [Probiotic] 1 each PO DAILY 04/26/17 [History] Polyethylene Glycol 3350 [MiraLAX] 17 gm PO DAILY 04/26/17 [History] Patient Handouts: Influenza, Adult, [id number], Community-Acquired Pneumonia , Adult, [id number] Referrals: Caridad Villa, FINANCIAL ADVOCATE [Primary Care Provider] - - Discharge Summary/Plan Comment DC Time >30 min.: No Discharge Summary/Plan Comment: Impression: Influenza B, no prior 2017 vaccine exposure Dehydration Query Pneumonia Plan: IVF TamiFlu; DC after final dose 04/29/17 Query empiric ATB coverage Infectious work up Droplet isolation DVT/GI prophylaxis Consult PT/OT/CM (re: HH if needed) - General Info Date of Service: 04/26/17 Functional Status: Reports: Tolerating Diet, Ambulating, Urinating - Review of Systems General: Reports: No Symptoms HEENT: Reports: No Symptoms Pulmonary: Reports: No Symptoms Cardiovascular: Reports: No Symptoms Gastrointestinal: Reports: No Symptoms Genitourinary: Reports: No Symptoms Musculoskeletal: Reports: No Symptoms Skin: Reports: No Symptoms Neurological: Reports: No Symptoms Psychiatric: Reports: No Symptoms - Patient Data Vitals - Most Recent: Last Vital Signs Temp 36.7 C 04/29/17 07:45 Pulse 62 04/29/17 07:45 Resp 18 04/29/17 07:45 BP 143/71 H 04/29/17 07:45 Pulse Ox 92 L 04/29/17 07:45 Weight - Most Recent: 57.107 kg I&O - Last 24 hours: Intake & Output 04/28/17 04/29/17 04/29/17 21:59 06:59 14:59 Intake Total Output Total Balance Lab Results - Last 24 hrs: Laboratory Results - last 24 hr 04/29/17 04/29/17 04/29/17 Range/Units 05:35 05:35 05:35 WBC 7.66 (3.98-10.04) K/mm3 RBC 4.29 (3.98-5.22) M/mm3 Hgb 13.8 (11.2-15.7) gm/L Hct 39.3 (34.1-44.9) % MCV 91.6 (79.4-94.8) fl MCH 32.2 (25.6-32.2) pg MCHC 35.1 (32.2-35.5) g/dl RDW Std Deviation 41.7 (36.4-46.3) fL Plt Count 261 (182-369) K/mm3 MPV 10.2 (9.4-12.3) fl Neut % (Auto) 40.1 (34.0-71.1) % Lymph % (Auto) 45.2 (19.3-51.7) % [place] % (Auto) 9.5 (4.7-12.5) % Eos % (Auto) 4.4 (0.7-5.8) Baso % (Auto) 0.8 (0.1-1.2) % Neut # (Auto) 3.07 (1.56-6.13) K/mm3 Lymph # (Auto) 3.46 (1.18-3.74) K/mm3 [place] # (Auto) 0.73 H (0.24-0.36) K/mm3 Eos # (Auto) 0.34 (0.04-0.36) K/mm3 Baso # (Auto) 0.06 (0.01-0.08) K/mm3 Manual Slide Review Abnormal smear Sodium 140 (136-145) mEq/L Potassium 4.8 (3.5-5.1) mEq/L Chloride 107 (98-107) mEq/L Carbon Dioxide 24 (21-32) mEq/L Anion Gap 13.8 (5-15) BUN 16 (7-18) mg/dL Creatinine 0.8 (0.55-1.02) mg/dL Est Cr Clr Drug Dosing 42.88 mL/min Estimated GFR (MDRD) > 60 (>60) mL/min BUN/Creatinine Ratio 20.0 H (14-18) Glucose 98 (83-115) mg/dL Lactic Acid 1.0 (0.4-2.0) mmol/L Calcium 9.9 (8.5-10.1) mg/dL Magnesium 1.9 (1.8-2.4) mg/dl C-Reactive Protein 1.1 H* (<1.0) mg/dL Med Orders - Current: Current Medications Acetaminophen (Tylenol) 650 mg PO Q4H PRN PRN Reason: Fever Last Admin: 04/26/17 02:37 Dose: 650 mg Albuterol/Ipratropium (Duoneb 3.0-0.5 Mg/3 Ml) 3 ml NEB QIDRT PRN PRN Reason: Shortness of Breath Last Admin: 04/26/17 15:01 Dose: 3 ml Enoxaparin Sodium (Lovenox) 40 mg SUBCUT DAILY [facility] Last Admin: 04/29/17 09:12 Dose: 40 mg Famotidine (Pepcid) 20 mg PO BEDTIME [facility] Last Admin: 04/28/17 20:15 Dose: 20 mg Oseltamivir Phosphate (Tamiflu) 30 mg PO BID [facility] Stop: 04/29/17 22:00 Last Admin: 04/29/17 09:12 Dose: 30 mg Cyclosporine 0.05% (Opth Emulsion) 0 each EYEBOTH ASDIRECTED PRN PRN Reason: Dry Eyes Polyethylene Glycol (Miralax) 17 gm PO DAILY [facility] Last Admin: 04/29/17 09:13 Dose: 17 gm Potassium Chloride (Klor-Con M20) 40 meq PO BID [facility] Stop: 04/29/17 16:16 Last Admin: 04/29/17 09:11 Dose: 40 meq Saccharomyces Boulardii (Florastor) 250 mg PO DAILY [facility] Last Admin: 04/29/17 09:12 Dose: 250 mg Simvastatin (Zocor) 20 mg PO BEDTIME [facility] Last Admin: 04/28/17 20:15 Dose: 20 mg Sodium Chloride (Saline Flush) 10 ml FLUSH ASDIRECTED PRN PRN Reason: Keep Vein Open Last Admin: 04/25/17 19:38 Dose: 10 ml Temazepam (Restoril) 7.5 mg PO BEDTIME PRN PRN Reason: Insomnia Discontinued Medications Albuterol/Ipratropium (Duoneb 3.0-0.5 Mg/3 Ml) 3 ml NEB ONETIME ONE Stop: 04/25/17 18:58 Last Admin: 04/25/17 19:08 Dose: 3 ml Ceftriaxone Sodium 2 gm/ (Sodium Chloride) 100 mls @ 100 mls/hr IV ONETIME ONE Stop: 04/25/17 19:56 Last Admin: 04/25/17 19:37 Dose: 100 mls/hr Sodium Chloride (Normal Saline) 1,000 mls @ 125 mls/hr IV ASDIRECTED [facility] Last Admin: 04/26/17 07:05 Dose: 125 mls/hr Levofloxacin/Dextrose 750 mg/ (Premix) 150 mls @ 100 mls/hr IV Q48H [facility] Last Admin: 04/25/17 23:43 Dose: 100 mls/hr Sodium Chloride (Normal Saline) 1,000 mls @ 75 mls/hr IV ASDIRECTED [facility] Magnesium Sulfate 2 gm/ Premix 50 mls @ 25 mls/hr IV ONETIME ONE Stop: 04/26/17 18:10 Last Admin: 04/26/17 16:34 Dose: 25 mls/hr Sodium Chloride (Normal Saline) 1,000 mls @ 50 mls/hr IV ASDIRECTED [facility] Last Admin: 04/27/17 14:29 Dose: 50 mls/hr Oseltamivir Phosphate (Tamiflu) 75 mg PO ONETIME ONE Stop: 04/25/17 20:15 Last Admin: 04/25/17 20:46 Dose: 75 mg Ubidecarenone [Co Q- (10] 1 Cap) 0 each PO DAILY [facility] Last Admin: 04/27/17 09:49 Dose: Not Given Simvastatin (Zocor) 20 mg PO BEDTIME [facility] - Exam General: Reports: Alert, Oriented, Cooperative, No Acute Distress HEENT: Reports: Pupils Equal, Pupils Reactive, EOMI Neck: Reports: Trachea Midline, No JVD Lungs: Reports: Normal Respiratory Effort Cardiovascular: Reports: Regular Rate, Regular Rhythm GI/Abdominal Exam: Normal Bowel Sounds, Soft, Non-Tender, No Organomegaly, No Distention (Female) Exam: Deferred Rectal (Female) Exam: Deferred Back Exam: Reports: Normal Inspection Extremities: Normal Inspection, Normal Range of Motion, Non-Tender Skin: Reports: Warm, Dry Neurological: Reports: No New Focal Deficit, Normal Gait, Normal Speech Psy/Mental Status: Reports: Alert, Normal Affect, Normal Mood *Q Meaningful Use (DIS) - VTE *Q VTE Criteria *Q: - Stroke *Q Stroke Criteria *Q: - AMI *Q AMI Criteria *Q:
== END 2017-04-29 12:11 | disposition home or self-care (01) | DRG 195 ==
LOC: JD.ED 18:19 → JD.MS 21:14 → OBSVTOIN 04-26 13:07
PROVIDERS: ADMIT Internal Medicine Cardiovascular Disease; ATTEND Internal Medicine Cardiovascular Disease
DX: J10.00 Influenza due to other identified influenza virus with unspecified type of pneumonia (principal); E86.0 Dehydration; M19.90 Unspecified osteoarthritis, unspecified site; K58.9 Irritable bowel syndrome, unspecified; H54.7 Unspecified visual loss; Z87.891 Personal history of nicotine dependence; Z79.899 Other long term (current) drug therapy
CPT/HCPCS: 36415 ×2; 71045; 80048; 80053; 83605 ×2; 83735; 85025 ×2; 86140 ×2; 86738; 87040 ×2; 87804 ×2; 94640; 96365; 96366; 97165; 97530; 99285; A9270 ×3; J0696; J1650; J1956; J7030; J7040 ×2; J7050; 71046; 71046-26; 81001; 87899; 97110-GP; 97116-GP; 97162-GP; J3475

== ENCOUNTER 2018-05-12 11:17 | Emergency (ER) | payer MEDICARE, MEDICAID ==
[2018-05-12 11:40] VITALS: BP 149/85
[2018-05-12] MEDS ORDERED: Albuterol/Ipratropium 3.0-0.5 MG/3 ML Neb Soln NEB ONE (12:13)
--- NOTE | 2018-05-12 12:21 | EDM.PDOC ---
ED HPI GENERAL MEDICAL PROBLEM - General Chief Complaint: General Stated Complaint: COUGH Time Seen by Provider: 05/12/18 11:32 Source of Information: Reports: Patient, Old Records, RN Notes Reviewed History Limitations: Reports: No Limitations - History of Present Illness INITIAL COMMENTS - FREE TEXT/NARRATIVE: Patient is an 83-year-old female who presents to the ED for the evaluation of a cough. She states this has been present for around 3 weeks now. She states the cough is pretty much present all the time but worsens when she lays flat. This does not keep her awake at night. She is able to sleep okay. She denies any other lung history such as COPD, asthma, or history of pneumonia. She states that she went to the walk-in clinic on Sunday for this and they did a chest x-ray however they told her that she had a hernia but not much else about her lungs. The patient states she has been taking Robitussin cough and this has not provided much benefit. She feels as if she might have some slight sinus congestion that this is not super bothersome. She states that she feels the need to blow her nose but then nothing comes of it. She is not on any medications that would cause this cough. She notes a history of reflux that she gets a cough from time to time with. She states that she was slightly short of breath last night with some wheezing/rattling breath sounds. She does not have a significant smoking history she states that she smoked for around 3 months in high school when it was cool but did not have a prolonged smoking history. Her primary care provider is Caridad Villa. - Related Data Allergies Allergy/AdvReac Type Severity Reaction Status Date / Time No Known Allergies Allergy Verified 05/12/18 11:34 Home Meds: Home Meds Multivitamin [Multi-Vitamin Daily] 1 tab PO DAILY 02/28/14 [History] Omeprazole 1 cap PO DAILY 02/28/14 [History] Simvastatin [Zocor] 1 tab PO BEDTIME 02/28/14 [History] Ascorbic Acid [Vitamin C] 1 tab PO DAILY 04/06/14 [History] Calcium Citrate/Vitamin D3 [Sm Calcium Citrate-Vit D Cplt] 1 tab PO TID [History] Cholecalciferol (Vitamin D3) [Vitamin D3] 1 tab PO DAILY 02/16/15 [History] Denosumab [Prolia] 1 dose SQ ASDIRECTED 04/06/14 [History] Glucosamine Sulfate 1 tab PO DAILY 04/06/14 [History] [place]-3 Fatty Acids [[place]-3] 1 cap PO DAILY 04/06/14 [History] Ubidecarenone [Co Q-10] 1 cap PO DAILY 04/06/14 [History] cycloSPORINE [Restasis] 1 dose EYEBOTH ASDIRECTED PRN 04/06/14 [History] L.acidoph,Paracasei, B.lactis [Probiotic] 1 each PO DAILY 04/26/17 [History] Polyethylene Glycol 3350 [MiraLAX] 17 gm PO DAILY 04/26/17 [History] Azithromycin [Zithromax] 250 mg PO DAILY #6 tab 05/12/18 [Rx] Vitamin B Complex 1 each PO DAILY 05/12/18 [History] Past Medical History 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 Gastrointestinal History: Reports: GERD, Irritable Bowel Syndrome Genitourinary History: Reports: Urinary Incontinence, Other (See Below) Other Genitourinary History: incontinent at times Musculoskeletal History: Reports: Osteoarthritis, Osteoporosis Neurological History: Reports: Other (See Below) 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 - Infectious Disease History Infectious Disease History: Reports: Chicken Pox, Measles, Mumps, Other (See Below) Other Infectious Disease History: Encephalitis - Past Surgical History HEENT Surgical History: Reports: Cataract Surgery, Other (See Below) Other HEENT Surgeries/Procedures: wisdom teeth sx Musculoskeletal Surgical History: Reports: Other (See Below) Other Musculoskeletal Surgeries/Procedures:: back sx Social & Family History - Family History Family Medical History: Noncontributory - Tobacco Use Smoking Status *Q: Never Smoker - Caffeine Use Caffeine Use: Reports: Coffee Other Caffeine Use: 2 cups a day - Recreational Drug Use Recreational Drug Use: No ED ROS GENERAL - Review of Systems Review Of Systems: See Below Constitutional: Denies: Fever, Chills, Malaise, Weakness, Fatigue HEENT: Reports: Rhinitis. Denies: Throat Pain Respiratory: Reports: Shortness of Breath, Wheezing, Cough. Denies: Sputum Cardiovascular: Denies: Chest Pain, Lightheadedness, Orthopnea Endocrine: Reports: No Symptoms GI/Abdominal: Reports: No Symptoms : Reports: No Symptoms Musculoskeletal: Reports: No Symptoms Skin: Reports: No Symptoms Neurological: Reports: No Symptoms Psychiatric: Reports: No Symptoms Hematologic/Lymphatic: Reports: No Symptoms Immunologic: Reports: No Symptoms ED EXAM, GENERAL - Physical Exam Exam: See Below Exam Limited By: No Limitations General Appearance: Alert, WD/WN, No Apparent Distress Eye Exam: Bilateral Eye: Normal Inspection Ears: Normal External Exam Nose: Normal Inspection, Normal Mucosa, No Blood, Clear Rhinorrhea Throat/Mouth: Normal Inspection, Normal Lips, Normal Teeth, Normal Oropharynx, Normal Voice, No Airway Compromise Head: Atraumatic, Normocephalic Neck: Normal Inspection, Supple, Non-Tender, Full Range of Motion Respiratory/Chest: No Respiratory Distress, Normal Breath Sounds, No Accessory Muscle Use, Chest Non-Tender, Rhonchi (diffuse throughout lung wynn, worse over bronchial tree) Cardiovascular: Normal Peripheral Pulses, Regular Rate, Rhythm, No Edema, No Murmur GI/Abdominal: Normal Bowel Sounds, Soft, Non-Tender, No Distention Extremities: Normal Inspection, No Pedal Edema, Normal Capillary Refill Neurological: Alert, Oriented, Normal Cognition, Normal Gait, No Motor/Sensory Deficits Psychiatric: Normal Affect, Normal Mood Skin Exam: Warm, Dry, Intact, Normal Color, No Rash Course - Vital Signs Last Recorded V/S: Last Vital Signs Temp 98.1 F 05/12/18 11:47 Pulse 88 05/12/18 11:29 Resp 20 05/12/18 11:29 BP 149/85 H 05/12/18 11:29 Pulse Ox 94 L 05/12/18 12:24 - Orders/Labs/Meds Orders: Active Orders 24 hr Category Date Time Status RT Aerosol Therapy [RC] ASDIRECTED Care 05/12/18 12:13 Ordered Meds: Medications Discontinued Medications Generic Name Dose Route Start Last Admin Trade Name Freq PRN Reason Stop Dose Admin Albuterol/Ipratropium 3 ml 05/12/18 12:13 05/12/18 12:24 Duoneb 3.0-0.5 Mg/3 Ml NEB 05/12/18 12:14 3 ml ONETIME ONE Administration - Re-Assessments/Exams Free Text/Narrative Re-Assessment/Exam: 05/12/18 12:22 Patient presents to the ED for the evaluation of a cough. I have ordered a DuoNeb for initial management. The x-ray tech at [place] is going to be pushing the chest x-ray study they had done on Sunday to us so we can review this. I do not believe that she has pneumonia, however she may have some congestion with postnasal drip versus bronchitis at this time. Her cough is a moist, hacky sounding cough, she is not able to get any sputum up with this cough. Plan to send her home with general sinus instructions, i.e. sinus rinses , [id number] nasal decongestants, and possibly [id number] antacid in case this might be due to reflux as well. However this is less likely at this time. 05/12/18 13:06 Patient is reassessed at bedside and she states that she feels much better. I will discharge her home with general recommendations. Departure - Departure Time of Disposition: 13:09 Disposition: Home, Self-Care 01 Condition: Fair Clinical Impression: Cough, Bronchitis - Discharge Information *PRESCRIPTION DRUG MONITORING PROGRAM REVIEWED*: No *COPY OF PRESCRIPTION DRUG MONITORING REPORT IN PATIENT SADA: No Instructions: Cough, Adult, [id number] Referrals: Caridad Villa, BUSINESS WRITER [Primary Care Provider] - Forms: ED Department Discharge Additional Instructions: You have been evaluated in the ED today for your cough. Your chest x-ray was obtained from [place]'s records and does not demonstrate any sign of pneumonia. Recommend that you try some OTC sinus congestion relief: Neilmed Sinus rinse kit (available at any pharmacy or retail store), Nasal decongestants like Phenylephrine, and possibly mucinex to help thin the mucus to help clear this cough up. You have been provided with a prescription for Azithromycin, Please take 2 tablets on the 1st day, then only 1 tablet for the next 4 days. This has been electronically sent to [facility] [address]. Please pick this us Sunday AM. Recommend follow up with your primary care provider, Caridad Villa in around 1-2 weeks if the cough is not much better. Please return to the ED if your symptoms change or worsen. - My Orders Last 24 Hours: My Active Orders 05/12/18 12:13 RT Aerosol Therapy [RC] ASDIRECTED - Assessment/Plan Last 24 Hours: My Active Orders 05/12/18 12:13 RT Aerosol Therapy [RC] ASDIRECTED
== END 2018-05-12 13:23 | disposition home or self-care (01) ==
LOC: JD.ED 11:17
DX: J40 Bronchitis, not specified as acute or chronic (principal); Z79.899 Other long term (current) drug therapy; K21.9 Gastro-esophageal reflux disease without esophagitis
CPT/HCPCS: 94640; 99283; 99284-25; J7620-GY

== ENCOUNTER 2019-05-08 08:19 | Emergency (ER) | payer MEDICARE, MEDICAID ==
[2019-05-08 08:38] VITALS: BP 146/94; PULSE 85
--- NOTE | 2019-05-08 08:58 | EDM.PDOC ---
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 She is also had diffuse right posterior lateral thigh pain and buttock pain for the better part of a week or more. She is not exactly sure which days she seen the rash developed but it certainly been present for 3 days. Did states it is exquisitely painful to touch and describes it as a burning sensation. No rash per vagina. Does not hurt to void. It hurts to wipe or touch the area. Associated fever chills nausea or vomiting. No diarrhea Onset: Gradual Onset Date: 05/01/19 (Pain in the posterior lateral right thigh and buttock area for the last week but rash definitely for 3 to 4 days involving the right side of the vulva perineum and buttock) Duration: Day(s):, Getting Worse Location: Reports: Lower Extremity, Right (Right buttock and vulva and perineum. 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 (see below) Vaginal Pain Score (Numeric/FACES): 9 - Related Data Allergies Allergy/AdvReac Type Severity Reaction Status Date / Time No Known Allergies Allergy Verified 05/08/19 08:38 Home Meds: Home Meds Multivitamin [Multi-Vitamin Daily] 1 tab PO DAILY 02/28/14 [History] Omeprazole 1 cap PO DAILY 02/28/14 [History] Simvastatin [Zocor] 1 tab PO BEDTIME 02/28/14 [History] Ascorbic Acid [Vitamin C] 1 tab PO DAILY 04/06/14 [History] Calcium Citrate/Vitamin D3 [Sm Calcium Citrate-Vit D Cplt] 1 tab PO TID [History] Cholecalciferol (Vitamin D3) [Vitamin D3] 1 tab PO DAILY 04/06/14 [History] Denosumab [Prolia] 1 dose SQ ASDIRECTED 04/06/14 [History] Glucosamine Sulfate 1 tab PO DAILY 04/06/14 [History] [place]-3 Fatty Acids [Mobeetie-3] 1 cap PO DAILY 04/06/14 [History] Ubidecarenone [Co Q-10] 1 cap PO DAILY 04/06/14 [History] cycloSPORINE [Restasis] 1 dose EYEBOTH ASDIRECTED PRN 04/06/14 [History] L.acidoph,Paracasei, B.lactis [Probiotic] 1 each PO DAILY 04/26/17 [History] polyethylene glycoL 3350 [MiraLAX] 17 gm PO DAILY 04/26/17 [History] Vitamin B Complex 1 each PO DAILY 05/12/18 [History] Peppermint Oil [Ibgard] 90 mg PO BID 09/04/18 [History] Vit C/E/Zn/Coppr/Lutein/Zeaxan [Preservision Areds 2 Softgel] 1 tab PO DAILY [History] cycloSPORINE [Restasis] 09/04/18 [History] Acetaminophen/HYDROcodone [[place] 325-5 MG] 1 tab PO ONETIME #12 tablet 05/08/19 [Rx] valACYclovir [Valtrex] 1,000 mg PO TID #21 tab 05/08/19 [Rx] Past Medical History 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 Cardiovascular History: Reports: None Respiratory History: Reports: None Gastrointestinal History: Reports: GERD, Irritable Bowel Syndrome Genitourinary History: Reports: Urinary Incontinence, Other (See Below) Other Genitourinary History: incontinent at times VOCATIONAL 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 History: Reports: None Musculoskeletal History: Reports: Osteoarthritis, Osteoporosis Neurological History: Reports: Other (See Below) 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 Psychiatric History: Reports: None Endocrine/Metabolic History: Reports: None Hematologic History: Reports: None Immunologic History: Reports: None Oncologic (Cancer) History: Reports: None Dermatologic History: Reports: None - Infectious Disease History Infectious Disease History: Reports: Chicken Pox, Measles, Mumps, Other (See Below) Other Infectious Disease History: Encephalitis - Past Surgical History Head Surgeries/Procedures: Reports: None HEENT Surgical History: Reports: Adenoidectomy, Cataract Surgery, Oral Surgery, Tonsillectomy, Other (See Below) Social & Family History - Family History Family Medical History: Noncontributory - Tobacco Use Smoking Status *Q: Never Smoker - Caffeine Use Caffeine Use: Reports: None Other Caffeine Use: 2 cups a day - Recreational Drug Use Recreational Drug Use: No - Living Situation & Occupation Living situation: Reports: Occupation: Retired ED ROS GENERAL - Review of Systems Review Of Systems: See Below Constitutional: Denies: Fever, Chills, Malaise, Weakness, Fatigue, Decreased Appetite, Weight Loss HEENT: Reports: Glasses Respiratory: Reports: No Symptoms Cardiovascular: Reports: No Symptoms Endocrine: Reports: No Symptoms GI/Abdominal: Reports: No Symptoms : Reports: Frequency, Incontinence Musculoskeletal: Reports: Other (In the right buttock right posterior lateral thigh towards the knee and the perineum on the right side is right side of the bulb as well.) Skin: Reports: Other (Patient has a skin rash involving the right side of her vulva perineum and right buttock.) Neurological: Reports: Paresthesia (Eating type pain) Psychiatric: Reports: No Symptoms Hematologic/Lymphatic: Reports: No Symptoms Immunologic: Reports: No Symptoms ED EXAM, SKIN/RASH Exam: See Below Exam Limited By: No Limitations General Appearance: Alert, WD/WN, Anxious, Mild Distress ([place] anxious.) (Female) Exam: Other (She has shingles that involve the perineum the right buttock the right side of the vulva and the upper and lower portions of her right buttock. Be probably in the L2-L3 dermatome. For the most part the lesions are dry without any oozing at this time.) Rectal (Female) Exam: Other Extremities: Other Neurological: Alert (Is evidence of osteoarthritic changes in both knees.), Oriented, CN II-XII Intact, Normal Cognition Psychiatric: Normal Affect, Normal Mood Skin: Warm, Dry, Intact, Normal Color, Zoster-Like Rash Course - Vital Signs Text/Narrative:: 4-year-old female presents to the ED with a rash involving the right vulva right perineum right buttock both superiorly and inferiorly which she cannot see of course. She has had pain in the posterior lateral aspect of her thigh and buttock for the better part of a week. She believes the rash is been present for at least 3 days and is exquisitely tender to touch and describes as a severe burning type pain. Examination reveals this is the shingles or herpes zoster involving l the L1-L2 dermatome. Treatment will be valacyclovir 1 g 3 times daily for the next week. Also Enid 5 /325 mg 1/2 tablet to 1 tablet every 4 hours as necessary for pain relief x12 tablets provided. Lamisil cream to be used topically to provide a skin barrier as it does soothe the area mildly. She is to follow-up with her primary care provider in a week's time. Last Recorded V/S: Last Vital Signs Temp 36.6 C 05/08/19 08:35 Pulse 85 05/08/19 08:35 Resp 18 05/08/19 08:35 BP 146/94 H 05/08/19 08:35 Pulse Ox 100 05/08/19 08:35 - Radiology Interpretation Free Text/Narrative:: 84-year-old female presents to the ED with a rash on her vulva and right perineal area. She believes the rash been present for 3 to 4 days. She said pain involving the posterior lateral buttock and thigh for the last week. On examination patient has shingles likely in the L2 dermatome which does involve the right labia majora and perineum and buttock both superiorly and inferiorly. She will be treated with valacyclovir 1000 milligrams 3 times daily for the next week and Enid tabs 5/325 mg 1/2 to 1 tablet every 4-6 hours necessary for pain relief. To follow-up with her primary care physician in a week's time Departure - Departure Time of Disposition: 08:52 Disposition: Home, Self-Care 01 Condition: Fair Clinical Impression: Shingles outbreak Qualifiers: Herpes zoster complications: without complications Qualified Code(s): B02.9 - Zoster without complications - Discharge Information *PRESCRIPTION DRUG MONITORING PROGRAM REVIEWED*: Not Applicable *COPY OF PRESCRIPTION DRUG MONITORING REPORT IN PATIENT SADA: Not Applicable Prescriptions: Acetaminophen/HYDROcodone [[place] 325-5 MG] 1 tab PO ONETIME #12 tablet valACYclovir [Valtrex] 1,000 mg PO TID #21 tab Instructions: Shingles, [id number], Pelvic Pain, Female Referrals: Caridad Villa PROPERTY INSURANCE INSPECTOR [Primary Care Provider] - Forms: ED Department Discharge Additional Instructions: Evaluation in the emergency room today in regards to a painful rash that is affected the right side of your genitals called the vulva as well as the perianal tissues and buttock on the right side and also a few lesions on your upper l per and lower buttock characteristic of shingles rash. As you indicated your entire right posterior thigh has been sore for the last 5 to 7 days. She usually breaks out over period of a week and then will start to dry up and go away. You can still usually see the hager where the rash was for several months before they fade away. Treatment is to take antiviral medication valacyclovir 1 gm about 3 times daily for the next week to reduce the inflammation and hopefully speed up the recovery of pain from the shingles. Pain pill is [place] 5/325 mg take 1/2 tablet and if not relieving the pain quite well in an hour and a half to take the other half a tablet every 4 hours as necessary for relief of the pain. Just purchasing some Lamisil cream which is [id number] and placing this on the genital area and perianal area twice daily to help soothe the area. Does follow-up with your personal care physician in 1 week's time. Sepsis Event Note - Evaluation Sepsis Screening Result: No Definite Risk - Focused Exam Vital Signs: Vital Signs Temp Pulse Resp BP Pulse Ox 05/08/19 08:35 36.6 C 85 18 146/94 H 100 Date Exam was Performed: 05/08/19 Time Exam was Performed: 09:01
== END 2019-05-08 09:20 | disposition home or self-care (01) ==
LOC: JD.ED 08:19
DX: B02.9 Zoster without complications (principal)
CPT/HCPCS: 99283

== ENCOUNTER 2020-07-13 07:47 | Day surgery (SDC) | payer MEDICARE, MEDICAID ==
[~2020-07-13 07:47] MED LIST: Dexamethasone 4 MG/ML 5 ML MDV ONE; Lactated Ringers 1,000 ML IV SCH; Lactated Ringers 1,000 ML ONE; Lidocaine 1% 4 ML ONE; Lidocaine 1%/Sod Bicarbonate in NS 8.4% 1 ML Syringe IDERM PRN; Ondansetron 4 MG/2 ML SDV ONE; Propofol 200 MG/20 ML SDV ONE; Sodium Chloride 0.9% 10 ML Syringe FLUSH PRN; ceFAZolin 1 GM Vial ONE; fentaNYL 100 MCG/2 ML SDV ONE
--- NOTE | 2020-07-13 08:31 | PCM.PREANE ---
<Esperanza Desai - Last Filed: 07/13/20 08:20> Preanesthetic Assessment - Procedure Proposed Procedure: Left Inguinal hernia repair open with mesh - Anesthesia/Transfusion/Family Hx Anesthesia History: No Prior Anesthesia Family History of Anesthesia Reaction: No Transfusion History: No Prior Transfusion(s) Intubation History: Unknown - Physical Assessment NPO Status Date: 07/12/20 NPO Status Time: 22:30 Vital Signs: HR: 56 Sat: 93% B/P: 149/78 Resp: 16 Temp: 98.5 ASA Class: 3 Mental Status: Alert & Oriented x3 - Lab Values: All labs reviewed and noted and within acceptable ranges to proceed with scheduled procedure. - Imaging/EKG Impressions: EKG: NSR rate 62 CXR: clear lungs - Allergies Allergies/Adverse Reactions: Allergies Allergy/AdvReac Type Severity Reaction Status Date / Time No Known Allergies Allergy Verified 07/12/20 17:29 - Anesthesia Plan Pre-Op Medication Ordered: None - Acknowledgements Anesthesia Type Planned: MAC Pt an Appropriate Candidate for the Planned Anesthesia: Yes Alternatives and Risks of Anesthesia Discussed w Pt/Guardian: Yes Pt/Guardian Understands and Agrees with Anesthesia Plan: Yes PreAnesthesia Questionnaire HEENT History: Reports: Allergic Rhinitis, Impaired Vision, Macular Degeneration, Other (See Below) Other HEENT History: dry eyes, ptosis, conjunctivitis Cardiovascular History: Reports: High Cholesterol Respiratory History: Reports: None Gastrointestinal History: Reports: Chronic Constipation, GERD, Hemorrhoids, Irritable Bowel Syndrome Genitourinary History: Reports: Urinary Incontinence, Other (See Below) Other Genitourinary History: incontinent at times, labial adhesions, atrophic vaginitis 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 Musculoskeletal History: Reports: Osteoarthritis, Osteoporosis, Other (See Below) Other Musculoskeletal History: right achilles tendon contraction, arm pain, SI joint pain, ataxia, biceps tendinitis Neurological History: Reports: Other (See Below) 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, degenerative lumbar arthritis, post herpetic neuralgia, tremor Psychiatric History: Reports: None Endocrine/Metabolic History: Reports: None Hematologic History: Reports: None Immunologic History: Reports: None Oncologic (Cancer) History: Reports: None Dermatologic History: Reports: Other (See Below) Other Dermatologic History: solar lentigo - Infectious Disease History Infectious Disease History: Reports: Chicken Pox, Measles, Mumps, Other (See Below) Other Infectious Disease History: Encephalitis - Past Surgical History Head Surgeries/Procedures: Reports: None HEENT Surgical History: Reports: Adenoidectomy, Cataract Surgery, Oral Surgery, Tonsillectomy, Other (See Below) Other HEENT Surgeries/Procedures: wisdom teeth sx Cardiovascular Surgical History: Reports: None Respiratory Surgical History: Reports: None GI Surgical History: Reports: Hernia Repair/Other Female Surgical History: Reports: None Male Surgical History: Reports: None Endocrine Surgical History: Reports: None Neurological Surgical History: Reports: Other (See Below) Other Neurological Surgeries/Procedures: low back surgery Musculoskeletal Surgical History: Reports: Other (See Below) Other Musculoskeletal Surgeries/Procedures:: back sx Oncologic Surgical History: Reports: None Dermatological Surgical History: Reports: None - SUBSTANCE USE Tobacco Use Status *Q: Never Tobacco User Recreational Drug Use History: No - HOME MEDS Home Medications: Home Meds Multivitamin [Multi-Vitamin Daily] 1 tab PO DAILY 02/28/14 [History] Omeprazole 20 mg PO DAILY 02/28/14 [History] Simvastatin [Zocor] 20 mg PO BEDTIME 02/28/14 [History] Ascorbic Acid [Vitamin C] 1 tab PO DAILY 04/06/14 [History] Calcium Citrate/Vitamin D3 [Sm Enoc Cit 315 mg-D3 250 Unit] 1 tab PO TID 04/06/14 [History] Cholecalciferol (Vitamin D3) [Vitamin D3] 400 unit PO DAILY 04/06/14 [History] Denosumab [Prolia] 1 dose SQ ASDIRECTED 04/06/14 [History] Glucosamine Sulfate 3 tab PO DAILY 04/06/14 [History] [place]-3 Fatty Acids [[place]-3] 1 cap PO DAILY 04/06/14 [History] L.acidoph,Paracasei, B.lactis [Probiotic] 1 each PO DAILY 04/26/17 [History] polyethylene glycoL 3350 [MiraLAX] 17 gm PO DAILY 04/26/17 [History] Vitamin B Complex 1 each PO DAILY 05/12/18 [History] Vit C/E/Zn/Coppr/Lutein/Zeaxan [Preservision Areds 2 Softgel] 1 tab PO DAILY [History] Hydrocortisone [Hydrocortisone 2.5% Oint] 1 dose RECTAL ASDIRECTED PRN 07/12/20 [History] Lidocaine [Anecream] 1 dose TOP Q6H PRN 07/12/20 [History] Lifitegrast [Xiidra] 1 drop EYEBOTH BID 07/12/20 [History] Lutein 20 mg PO DAILY 07/12/20 [History] Magnesium Oxide 250 mg PO DAILY 07/12/20 [History] Milk Thistle Seed Extract [Milk Thistle] 200 mg PO DAILY 07/12/20 [History] Naproxen Sodium [Aleve] 220 mg PO BID PRN 07/12/20 [History] Propylene Glycol/PEG 400/Pf [Systane 0.3-0.4% Eye Drop] 1 drop EYEBOTH DAILY 07/12/20 [History] Turmeric Root Extract [Turmeric] 500 mg PO DAILY 07/12/20 [History] Vitamin E 100 unit PO DAILY 07/12/20 [History] Zinc 50 mg PO DAILY 07/12/20 [History] estradioL [Estradiol] 1 dose VAG DAILY 07/12/20 [History] <Jessica Nation - Last Filed: 07/13/20 08:41> Preanesthetic Assessment - Anesthesia/Transfusion/Family Hx Anesthesia History: Prior Anesthesia Without Reaction Family History of Anesthesia Reaction: No Transfusion History: No Prior Transfusion(s) Intubation History: Unknown - Review of Systems General: No Symptoms Pulmonary: No Symptoms Cardiovascular: No Symptoms, Other (Walks three times a week. No complints of chest pain. ) Gastrointestinal: Other (GERD, Hiatal Hernia. ) Neurological: Pre-Existing Deficit (Tremor, ataxia, restless leg syndrome. ), Other (Scoliosis, severe compression deformity thoracolumbar junction. ) Other: Reports: None - Physical Assessment ASA Class: 3 Mental Status: Alert & Oriented x3 Airway Class: Mallampati = 2 Dentition: Reports: Caries Thyro-Mental Finger Breadths: 2 Mouth Opening Finger Breadths: 3 ROM/Head Extension: Full Lungs: Clear to Auscultation, Normal Respiratory Effort Cardiovascular: Regular Rhythm, Bradycardia - Anesthesia Plan Pre-Op Medication Ordered: Other (Aspiration Prophylaxis: Metocolopramide, Famotadine, Bicitra ) - Acknowledgements Anesthesia Type Planned: MAC Pt an Appropriate Candidate for the Planned Anesthesia: Yes Alternatives and Risks of Anesthesia Discussed w Pt/Guardian: Yes Pt/Guardian Understands and Agrees with Anesthesia Plan: Yes PreAnesthesia Questionnaire - CURRENT (IN HOUSE) MEDS Current Meds: Current Medications Albuterol (Albuterol 0.083% 2.5 Mg/3 Ml Neb Soln) 2.5 mg NEB ONETIME ONE Stop: 07/13/20 09:21 Last Admin: 07/13/20 08:33 Dose: 2.5 mg Documented by: Lactated Ringer's (Ringers, Lactated) 1,000 mls @ 125 mls/hr IV ASDIRECTED ANDREA Lidocaine/Sodium Bicarbonate (Lidocaine 1%/Sod Bicarbonate In Ns 8.4% 1 Ml Syringe) 0.25 ml IDERM ONETIME PRN PRN Reason: Prior to IV Start Sodium Chloride (Sodium Chloride 0.9% 10 Ml Syringe) 10 ml FLUSH ASDIRECTED PRN PRN Reason: Keep Vein Open Discontinued Medications Bupivacaine HCl/Epinephrine Bitart (Bupivacaine 0.5%/Epinephrine 1:200,000 50 Ml Mdv) Confirm Administered Dose 50 ml .ROUTE .STK-MED ONE Stop: 07/13/20 07:37 Cefazolin Sodium (Cefazolin 1 Gm Vial) Confirm Administered Dose 2 gm .ROUTE .STK-MED ONE Stop: 07/13/20 07:23 Dexamethasone (Dexamethasone 4 Mg/Ml 5 Ml Mdv) Confirm Administered Dose 20 mg .ROUTE .STK-MED ONE Stop: 07/13/20 07:23 Fentanyl (Fentanyl 100 Mcg/2 Ml Sdv) Confirm Administered Dose 100 mcg .ROUTE .STK-MED ONE Stop: 07/13/20 07:23 Lidocaine HCl (Xylocaine-Mpf 1%) Confirm Administered Dose 4 mls @ as directed .ROUTE .STK-MED ONE Stop: 07/13/20 07:23 Lactated Ringer's (Ringers, Lactated) Confirm Administered Dose 1,000 mls @ as directed .ROUTE .STK-MED ONE Stop: 07/13/20 07:23 Ondansetron HCl (Ondansetron 4 Mg/2 Ml Sdv) Confirm Administered Dose 4 mg .ROUTE .STK-MED ONE Stop: 07/13/20 07:23 Propofol (Propofol 200 Mg/20 Ml Sdv) Confirm Administered Dose 200 mg .ROUTE .STK-MED ONE Stop: 07/13/20 07:23
[2020-07-13] MEDS ORDERED: Metoclopramide 10 MG/2 ML SDV IVPUSH ONE (08:43)
[2020-07-13] MEDS ORDERED: Famotidine 20 MG/2 ML SDV IVPUSH ONE (08:45)
[2020-07-13] MEDS ORDERED: Citric Acid/Sodium Citrate Solution 30 ML Cup PO ONE (08:45)
[2020-07-13] MEDS ORDERED: Albuterol 0.083% 2.5 MG/3 ML Neb Soln NEB ONE (09:20)
[2020-07-13] MEDS ORDERED: Midazolam 1 MG/ML 2 ML SDV ONE (09:21)
[2020-07-13] MEDS ORDERED: Ketamine 500 mg/10 ML MDV ONE (09:21)
[2020-07-13] MEDS ORDERED: Labetalol 100 MG/20 ML MDV ONE (11:14)
[2020-07-13] MEDS: Bupivacaine 0.5%/EPINEPHrine 1:200,000 50 ML MDV ONE ×2 (11:23→11:40)
[2020-07-13] MEDS ORDERED: HYDROmorphone 0.5 MG/0.5 ML Syringe IVPUSH PRN (11:28)
[2020-07-13] MEDS ORDERED: Ondansetron 4 MG/2 ML SDV IVPUSH PRN (11:28)
[2020-07-13] MEDS ORDERED: Albuterol 0.083% 2.5 MG/3 ML Neb Soln NEB PRN (11:28)
--- NOTE | 2020-07-13 12:31 | PCM48HPAN ---
Post Anesthesia Note - EVALUATION WITHIN 48HRS OF ANESTHETIC Vital Signs in Normal Range: Yes Patient Participated in Evaluation: Yes Respiratory Function Stable: Yes Airway Patent: Yes Cardiovascular Function Stable: Yes Hydration Status Stable: Yes Pain Control Satisfactory: Yes Nausea and Vomiting Control Satisfactory: Yes Mental Status Recovered: Yes Vital Signs: Last Vital Signs Temp 98.9 07/13/20 1219 Pulse 102 07/13/20 1219 Resp 13 07/13/20 1219 BP 99/68 07/13/20 1219 Pulse Ox 94 07/13/20 1219
--- NOTE | 2020-07-13 12:40 | PCM.PRNOTE ---
- Free Text/Narrative Note: Date: 07/13/2020 Operation: open left inguinal hernia repair Surgeon: Alexadner Barrios MD Findings: direct left inguinal hernia containing bowel, reducible. High ligation of sac performed. Inguinal floor reconstructed with Progrip permanent mesh. Detailed Report: The patient was taken to the operating room and placed in supine position. Timeout was performed and monitored anesthesia care was initiated. In and out catheterization of the bladder was performed to decompress the bladder of urine. The abdomen was prepped and draped in usual sterile fashion. [place] were placed at the left pubic symphysis and just medial and inferior to the left anterior superior iliac spine. This line marked the projection of the inguinal ligament. Skin along the line was anesthetized with 0.5% Marcaine with epinephrine injected intradermally. 10 cc was injected intradermally, and an additional 10 cc was injected in the subcutaneous layer. A 6 cm incision was made with a 10 blade scalpel through skin down to subcutaneous tissue. Soft tissue was retracted and dissection was carried down to the external oblique aponeurosis. The external inguinal ring was palpated. An additional 10 cc was injected just deep to the aponeurotic fibers. A stab incision was made proximal to the external ring with a 15 blade scalpel. Metzenbaum scissors were passed deep to the external oblique proximally and distally, and the roof of the inguinal canal was opened using scissors. Blunt dissection was performed around the round ligament and hernia sac. A García drain was placed around the inguinal contents at the level of the pubic symphysis. The sac was dissected from distal to proximal, and from the round ligament. The hernia sac was easily reducible, but when the patient coughed with Valsalva, bowel would herniate into the sac. Once the sac was freed back towards the level of the internal ring, the sac was elevated and incised sharply with scissors. The hernia sac was successfully entered, and there was no injury to the intraperitoneal structures. The sac was suture-ligated at its base with Vicryl suture, and the distal sac was amputated. Next, attention was turned to reconstruction of the floor of the inguinal canal with permanent mesh. A piece of 14 x 9 cm progrip mesh was introduced to the field. This was cut to shape. An anchoring stitch was placed at the inferomedial aspect of the mesh and anchored to Tony's ligament. There was ensured good 2 cm medial and inferior overlap at this site. The mesh was laid in place, and a slit was cut proximally to permit passage of the round ligament. The lateral aspect of the mesh was sutured to the shelving edge of the inguinal ligament with running 2-0 Prolene suture. The medial aspect was anchored to the internal oblique with a single interrupted Prolene stitch, taking care to avoid the iliohypogastric nerve. The mesh was laid flat proximally. The external oblique was closed using running Vicryl suture. Overlying Elidia's fascia was closed with interrupted Vicryl suture. The skin was closed with running 4-0 Vicryl suture and dressed with Dermabond. An additional 10 cc of local anesthetic was injected at the level of fascia just medial and inferior to the ASIS for regional block. The patient tolerated the procedure well, however it was noted she was in rate controlled A. fib throughout the case. A postoperative EKG confirmed atrial fibrillation.
[2020-07-14 06:25] VITALS: BP 117/85; PULSE 75
--- NOTE | 2020-07-26 08:35 | PCM.EKG ---
#1 Interpretation EKG Date: 07/13/20 Rhythm: A-Fib [place]: Normal P-Wave: Absent QRS: Normal ST-T: Normal QT: Normal Comparison: Change From Previous EKG EKG Interpretation Comments: rate controlled atrial fibrillation
== END 2020-07-13 15:12 | disposition home or self-care (01) ==
LOC: JD.SDS 07:47
PROVIDERS: ATTEND Surgery
DX: K40.90 Unilateral inguinal hernia, without obstruction or gangrene, not specified as recurrent (principal); M81.0 Age-related osteoporosis without current pathological fracture; E78.5 Hyperlipidemia, unspecified; I48.91 Unspecified atrial fibrillation; Z79.899 Other long term (current) drug therapy; Z87.891 Personal history of nicotine dependence
CPT/HCPCS: 49505; 93005; 94640; A9270; C1781; J0690; J1100; J2250; J2370; J2405; J2704; J2765; J3010; J3490; J7120; 00830; 99100